=== PATIENT | male | born 1990 | race Caucasian/White ===

== ENCOUNTER 2020-04-21 13:39 | Emergency (ER) | payer SELFPAY ==
--- NOTE | 2020-04-21 13:56 | EDM.PDOC ---
ED HPI GENERAL MEDICAL PROBLEM - General Chief Complaint: Lower Extremity Injury/Pain Stated Complaint: KNEE INJURY Time Seen by Provider: 04/21/20 13:56 Source of Information: Reports: Patient History Limitations: Reports: No Limitations - History of Present Illness INITIAL COMMENTS - FREE TEXT/NARRATIVE: HISTORY AND PHYSICAL: History of present illness: Patient is a 30-year-old male who presents to the emergency room with complaints of left knee pain. States a little over a week ago a door had fallen onto his knee and he now has pain to the patella and with weightbearing. He is fully ambulatory although it continues to be bothersome. He denies any other extremity involvement. Patient denies any fever, chills, headache, change in vision, syncope or near syncope. Denies any chest pain, back pain, shortness of breath or cough. Denies any abdominal pain, nausea, vomiting, diarrhea, constipation or dysuria. Has not noted any blood in urine or stool. Patient has been eating and drinking appropriately. Review of systems: As per history of present illness and below otherwise all systems reviewed and negative. Past medical history: As per history of present illness and as reviewed below otherwise noncontributory. Surgical history: As per history of present illness and as reviewed below otherwise noncontributory. Social history: See social history for further information Family history: As per history of present illness and as reviewed below otherwise noncontributory. Physical exam: General: Well-developed and well-nourished 30-year-old male. Alert and oriented. Nontoxic-appearing and in no acute distress. HEENT: Atraumatic, normocephalic, pupils equal and reactive bilaterally, negative for conjunctival pallor or scleral icterus, mucous membranes moist, trachea midline. No drooling or trismus noted. No meningeal signs. No hot potato voice noted. Lungs: Clear to auscultation, breath sounds equal bilaterally. Heart: S1S2, regular rate and rhythm without overt murmur Abdomen: Soft, nondistended, nontender. Skin: Intact, warm, dry. No lesions or rashes noted. Extremities: Knees are symmetrical, no soft tissue swelling moves all extremi ties per self without difficulty or deficits, flexion and extension of the knee, drawer test, no knee instability noted, negative for cords or calf pain. Strong pedal pulses. +CMS. Neurovascular unremarkable. Neuro: Awake, alert, oriented. Cranial nerves II through XII unremarkable. Cerebellum unremarkable. Motor and sensory unremarkable throughout. Exam nonfocal. Notes: X-ray shows no acute findings. Patient was placed in patellar cut out and crutches, for comfort. Patient to wear these over the next 1 to 3 days or until follow-up with orthopedic provider. We discussed the limitations of x-ray and that he may need an MRI if pain continues. Medication, follow-up and supportive care measures were reviewed and discussed. Voices understanding and is agreeable to plan of care. Denies any further questions or concerns at this time. Diagnostics: X-ray Therapeutics: Patellar cut out, crutches Prescription: Diclofenac Impression: Left knee injury Plan: 1. Rest, ice, elevate the affected extremity. Please wear the splint as directed. 2. Tylenol and/or Ibuprofen as needed for pain management. 3. Follow up with the Orthopedic provider as we discussed. Return to the ED as needed and as discussed. Definitive disposition and diagnosis as appropriate pending reevaluation and review of above. L knee Pain Score (Numeric/FACES): 10 - Related Data Allergies Allergy/AdvReac Type Severity Reaction Status Date / Time No Known Allergies Allergy Verified 04/21/20 14:20 Home Meds: Home Meds Diclofenac Sodium [Voltaren] 75 mg PO BIDMEALS PRN #30 tab.cr 04/21/20 [Rx] Review of Systems - Review of Systems Review Of Systems: Comprehensive ROS is negative, except as noted in HPI. ED EXAM, GENERAL - Physical Exam Exam: See Below (See dictation) Course - Vital Signs Last Recorded V/S: Last Vital Signs Temp 97.5 F 04/21/20 14:17 Pulse 80 04/21/20 14:17 Resp 17 04/21/20 14:17 BP 118/82 04/21/20 14:17 Pulse Ox 97 04/21/20 14:17 - Orders/Labs/Meds Orders: Active Orders 24 hr Category Date Time Status DME for Discharge [COMM] Stat Oth 04/21/20 15:35 Ordered Departure - Departure Time of Disposition: 14:29 Disposition: Home, Self-Care 01 Clinical Impression: Knee injury Qualifiers: Encounter type: initial encounter Laterality: left Qualified Code(s): S89.92XA - Unspecified injury of left lower leg, initial encounter - Discharge Information Prescriptions: Diclofenac Sodium [Voltaren] 75 mg PO BIDMEALS PRN #30 tab.cr PRN Reason: Pain Instructions: Knee Sprain, Adult, [id number] Referrals: PCP,None [Primary Care Provider] - Forms: ED Department Discharge Additional Instructions: The following information is given to patients seen in the emergency department who are being discharged to home. This information is to outline your options for follow-up care. We provide all patients seen in our emergency department with a follow-up referral. The need for follow-up, as well as the timing and circumstances, are variable depending upon the specifics of your emergency department visit. If you don't have a primary care physician on staff, we will provide you with a referral. We always advise you to contact your personal physician following an emergency department visit to inform them of the circumstance of the visit and for follow-up with them and/or the need for any referrals to a consulting specialist. The emergency department will also refer you to a specialist when appropriate. This referral assures that you have the opportunity for follow-up care with a specialist. All of these measure are taken in an effort to provide you with optimal care, which includes your follow-up. Under all circumstances we always encourage you to contact your private physician who remains a resource for coordinating your care. When calling for follow-up care, please make the office aware that this follow-up is from your recent emergency room visit. If for any reason you are refused follow-up, please contact the [facility] Emergency Department at and asked to speak to the emergency department charge nurse. [facility] [address] [place] [address] [id number] [address] Thank you for choosing the [facility] emergency department in [place] for your medical needs today. It was a pleasure caring for you. You were seen in the emergency department for knee pain/injury. 1. Rest, ice, elevate the affected extremity. Please wear the splint as directed. 2. Tylenol and/or Ibuprofen as needed for pain management. 3. Follow up with the Orthopedic provider as we discussed. If you continue to have pain you may require an MRI at some point. 4. Return to the ED as needed and as discussed. Sepsis Event Note (ED) - Focused Exam Vital Signs: Vital Signs Temp Pulse Resp BP Pulse Ox 04/21/20 14:17 97.5 F 80 17 118/82 97 - My Orders Last 24 Hours: My Active Orders 04/21/20 15:35 DME for Discharge [COMM] Stat - Assessment/Plan Last 24 Hours: My Active Orders 04/21/20 15:35 DME for Discharge [COMM] Stat
--- NOTE | 2020-04-21 15:34 | CR ---
Left knee: AP, lateral and sunrise patellar views of the left knee were obtained. Comparison: No previous knee exam. Medial and lateral joint compartments are maintained in height. No discrete joint effusion is seen. Patellofemoral joint appears within normal limits. Impression: 1. No abnormality is identified on 3 view left knee exam. Diagnostic code #1 This report was dictated in MDT
== END 2020-04-21 15:45 | disposition home or self-care (01) ==
LOC: MW.ED 13:39
DX: S89.92XA Unspecified injury of left lower leg, initial encounter (principal); X58.XXXA Exposure to other specified factors, initial encounter
CPT/HCPCS: 73562-26-LT; 73562-LT; 99283; 99283-25

== ENCOUNTER 2020-10-02 22:07 | Emergency (ER) | payer SELFPAY ==
[2020-10-02] MEDS ORDERED: Ibuprofen 600 MG Tab PO ONE (22:20)
[2020-10-02] MEDS ORDERED: traMADol 50 MG Tab PO ONE (22:20)
--- NOTE | 2020-10-02 22:21 | EDM.PDOC ---
ED HPI GENERAL MEDICAL PROBLEM - General Chief Complaint: Lower Extremity Injury/Pain Stated Complaint: LT TOE/FOOT INJURY Time Seen by Provider: 10/02/20 22:08 - History of Present Illness INITIAL COMMENTS - FREE TEXT/NARRATIVE: HISTORY AND PHYSICAL: History of present illness: This is a 30-year-old gentleman who presents ER today secondary to pain to his left big toe that he incurred when he stubbed it up against a table at home. Patient reports he was barefoot at the time. Patient reports has been having difficulty with weightbearing since yesterday when it occurred. Patient reports it occurred greater than 24 hours ago. Patient has not taken any ibuprofen or acetaminophen or anything for pain since the injury. Patient denies any other symptomatology. Patient has any recent fevers, shakes, chills, nausea, vom iting, diarrhea, dysuria, frequency, urgency. Review of systems: As per history of present illness and below otherwise all systems reviewed and negative. Past medical history: As per history of present illness and as reviewed below otherwise noncontributory. Surgical history: As per history of present illness and as reviewed below otherwise noncontributory. Social history: No reported history of drug or alcohol abuse. Family history: As per history of present illness and as reviewed below otherwise noncontributory. Physical exam: Constitutional: Patient is oriented to person, place, and time. Appears well- developed and well-nourished. No distress. HEENT: Moist mucous membranes Head: Normocephalic and atraumatic Eyes: Right eye exhibits no discharge. Left eye exhibits no discharge. No scleral icterus Neck: Normal range of motion. No tracheal deviation present. Cardiovascular: Normal rate and regular rhythm. Pulmonary: Effort normal, no respiratory distress. Abdominal: No distention Musculoskeletal: Normal range of motion Neurologic: Alert and oriented to person, place and time. Skin: [place], warm and dry. Psychiatric: Normal mood and affect. Behavior is normal. Judgment and thought content normal. Nursing note and vital signs have been reviewed Patient's ER physical exam is significant for soft tissue swelling, tenderness, ecchymosis to his left big toe. This patient was seen and evaluated during the 2019 SARS-CoV-2 novel coronavirus pandemic period. Community viral transmission is ongoing at time of this encounter and the emergency department is operating under pandemic response procedures. Diagnostics: X-rays of left toe negative fracture as interpreted by radiology and myself. Therapeutics: Ultram and ibuprofen Assessment and plan: Is a 30-year-old gentleman who presents ER today secondary to pain to his left toe x1 day since stubbing it up against a table at home. Patient had an x-ray of his toe, ibuprofen and Ultram for pain and will be reevaluated once x-rays obtained. Patient be discharged home with a prescription for ibuprofen Ultram to assist with the pain. Reassessment at the time of disposition demonstrates that the patient is in no acute distress. The patient has remained stable throughout the entire ED visit and is without objective evidence for acute process requiring urgent intervention or hospitalization. The patient is stable for discharge, counseling is provided as documented above, discussed symptomatic treatment and specific conditions for return. I have spoken with the patient/caregiver and discussed todays findings, in addition to providing specific details for the plan of care. Questions are answered and there is agreement with the plan. Definitive disposition and diagnosis as appropriate pending reevaluation and review of above. Left Toe-[place] Pain Score (Numeric/FACES): 7 - Related Data Allergies Allergy/AdvReac Type Severity Reaction Status Date / Time No Known Allergies Allergy Verified 10/02/20 22:16 Home Meds: Home Meds Ibuprofen 600 mg PO Q6HR PRN #30 tablet 10/02/20 [Rx] traMADol [Ultram] 50 mg PO Q6H PRN #12 tab 10/02/20 [Rx] Past Medical History - Past Health History Medical/Surgical History: Denies Medical/Surgical History Social & Family History - Family History Family Medical History: No Pertinent Family History - Caffeine Use Caffeine Use: Reports: Coffee Review of Systems - Review of Systems Review Of Systems: See Below ED EXAM, GENERAL - Physical Exam Exam: See Below Course - Vital Signs Last Recorded V/S: Last Vital Signs Temp 97.8 F 10/02/20 22:17 Pulse 77 10/02/20 22:17 Resp 18 10/02/20 22:17 BP 118/73 10/02/20 22:17 Pulse Ox 98 10/02/20 22:17 - Orders/Labs/Meds Meds: Medications Discontinued Medications Generic Name Dose Route Start Last Admin Trade Name Freq PRN Reason Stop Dose Admin Ibuprofen 600 mg 10/02/20 22:20 10/02/20 22:23 Motrin PO 10/02/20 22:21 600 mg ONETIME ONE Administration Tramadol HCl 50 mg 10/02/20 22:20 10/02/20 22:23 Ultram PO 10/02/20 22:21 50 mg ONETIME ONE Administration Departure - Departure Time of Disposition: 23:24 Disposition: Home, Self-Care 01 Condition: Good Clinical Impression: Sprain of toe, great, left Qualifiers: Encounter type: initial encounter Qualified Code(s): S93.502A - Unspecified sprain of left great toe, initial encounter - Discharge Information Instructions: How to [place], Musculoskeletal Pain Referrals: PCP,None [Primary Care Provider] - Forms: ED Department Discharge Additional Instructions: Your seen and evaluated in the ER today secondary to injury to your left great toe. Your x-rays do not reveal any fracture. You likely have a sprain and contusion to your toe. This might take 1 to 2 weeks to heal. He will be given a prescription for ibuprofen and Ultram to assist you with your pain. Please make an appointment to see your family doctor this week for reevaluation of the pain persists or if it worsens. The following information is given to patients seen in the emergency department who are being discharged to home. This information is to outline your options for follow-up care. We provide all patients seen in our emergency department with a follow-up referral. The need for follow-up, as well as the timing and circumstances, are variable depending upon the specifics of your emergency department visit. If you don't have a primary care physician on staff, we will provide you with a referral. We always advise you to contact your personal physician following an emergency department visit to inform them of the circumstance of the visit and for follow-up with them and/or the need for any referrals to a consulting specialist. The emergency department will also refer you to a specialist when appropriate. This referral assures that you have the opportunity for follow-up care with a specialist. All of these measure are taken in an effort to provide you with optimal care, which includes your follow-up. Under all circumstances we always encourage you to contact your private physician who remains a resource for coordinating your care. When calling for follow-up care, please make the office aware that this follow-up is from your recent emergency room visit. If for any reason you are refused follow-up, please contact the [facility] Emergency Department at and asked to speak to the emergency department charge nurse. [facility] - Primary [facility] [address] [place] [id number] [facility] [address] [place] [id number] Sepsis Event Note (ED) - Evaluation Sepsis Screening Result: No Definite Risk - Focused Exam Vital Signs: Vital Signs Temp Pulse Resp BP Pulse Ox 10/02/20 22:17 97.8 F 77 18 118/73 98
--- NOTE | 2020-10-02 23:07 | CR ---
HISTORY: Pain after stubbing the toe COMPARISON: None available. FINDINGS: The left great toe is examined with AP, lateral, and oblique views. There is no sign of fracture or dislocation. The soft tissues are normal in appearance without sign of radio-opaque foreign body. No degenerative disease is seen. IMPRESSION: Normal left great toe. Dictated by Vlad Denise MD @ Oct 02 2020 10:55PM Signed by Dr. Vlad Denise @ Oct 02 2020 11:06PM
== END 2020-10-02 23:36 | disposition home or self-care (01) ==
LOC: MW.ED 22:07
DX: S93.502A Unspecified sprain of left great toe, initial encounter (principal); W22.8XXA Striking against or struck by other objects, initial encounter; Y92.009 Unspecified place in unspecified non-institutional (private) residence as the place of occurrence of the external cause
CPT/HCPCS: 73660; 99283; A9270

== ENCOUNTER 2020-11-16 17:21 | Emergency (ER) | payer MEDICAID, BC ==
[2020-11-16] MEDS ORDERED: Diphtheria,Pertussis(Acell),Tetanus Vaccine 0.5 ML Syringe IM ONE (17:41)
[2020-11-16] MEDS ORDERED: Lidocaine 1% with EPINEPHrine 1:100,000 10 ML MDV INJECT ONE (17:41)
--- NOTE | 2020-11-16 17:41 | EDM.PDOC ---
ED HPI GENERAL MEDICAL PROBLEM - General Chief Complaint: Skin Complaint Stated Complaint: POSSIBLE CYST ON INNER THIGH Time Seen by Provider: 11/16/20 17:22 Source of Information: Reports: Patient History Limitations: Reports: No Limitations - History of Present Illness INITIAL COMMENTS - FREE TEXT/NARRATIVE: HISTORY AND PHYSICAL: History of present illness: Patient is a 30-year-old male who presents to the emergency room with complaints of a "cyst" to the right inner medial thigh. He states he noticed some irritation over the past 3 days which is progressively gotten worse. He attempted to extract the cyst himself but was unable to "go through with it". He has not had any drainage. Patient denies any fever, chills, headache, change in vision, syncope or near syncope. Denies any chest pain, back pain, shortness of breath or cough. Denies any GI or symptoms. Denies any testicular redness, swelling or tenderness. Patient has been eating and drinking appropria tely. Review of systems: As per history of present illness and below otherwise all systems reviewed and negative. Past medical history: As per history of present illness and as reviewed below otherwise noncontributory. Surgical history: As per history of present illness and as reviewed below otherwise noncontributory. Social history: See social history for further information Family history: As per history of present illness and as reviewed below otherwise noncontributory. Physical exam: General: Well developed and well nourished 30-year-old male. Alert and orientated x 3. Nontoxic in appearance and in no acute distress. Vital signs are stable and have been reviewed by me. Nursing notes were reviewed. HEENT: Atraumatic, normocephalic, pupils equal and reactive bilaterally, nega tive for conjunctival pallor or scleral icterus, mucous membranes moist, TMs normal bilaterally, throat clear, neck supple, nontender, trachea midline. No drooling or trismus noted. No meningeal signs. No hot potato voice noted. Lungs: Clear to auscultation bilaterally. No wheezes, rales, or rhonchi. Chest nontender. Normal work of breathing, no accessory muscles used. Heart: S1S2, regular rate and rhythm without overt murmur, gallops, or rubs. No JVD. No peripheral edema Abdomen: Soft, nondistended, nontender. Normoactive bowel sounds. Negative for masses or costovertebral tenderness. Pelvis: Stable nontender. Genitourinary/Rectal: Deferred. Skin: Abscess noted to right medial proximal thigh with fluctuance. Patient is tender to palpation. No surrounding cellulitis. Remaining skin is intact, warm, dry. No lesions or rashes noted. Hematologic: No petechiae or purpra. Mucosa appropriate color and normal nail bed color and refill. Extremities: Atraumatic, moves all extremities per self without difficulty or deficits, negative for cords or calf pain. Neurovascular unremarkable. Neuro: Awake, alert, oriented. Cranial nerves II through XII unremarkable. Cerebellum unremarkable. Motor and sensory unremarkable throughout. Exam nonfocal. Psychiatric: Mood and affect are appropriate. Normal thought process. Answering questions appropriately. Notes: *This patient was seen and evaluated during the 2019 SARS-CoV-2 novel coronavirus pandemic period. Community viral transmission is ongoing at time of this encounter and the emergency department is operating under pandemic response procedures. Lidocaine was used to anesthetize the area. Usual and customary procedures were followed for abscess drainage. Moderate amount of purulent drainage was expressed from the site. Patient tolerated well. Was packed with half-inch iodoform. I have talked with the patient about today's findings, in addition to providing specific details for plan of care. Reassessment at the time of disposition demonstrates that the patient is in no acute distress. The patient is stable for discharge, counseling was provided and we discussed in great detail signs and symptoms that would prompt them to return to the Emergency Department. Medication, follow up and supportive care measures were reviewed and discussed. Voices understanding and is agreeable to plan of care. Denies any further questions or concerns at this time. Diagnostics: None Therapeutics: Lidocaine Prescription: Bactrim Ds/Keflex Impression: Abscess Plan: 1. Keep the wound clean and dry. Wash gently with mild soap and water. Return in 48 hours to have the packing removed and re-packed. 2. You can alternate Tylenol and ibuprofen as needed for pain and fever management. 3. We encourage you to follow up with your primary care provider and/or recommended specialist in the next few days for re-evaluation and further care/management. 4. If your symptoms should worsen, new symptoms develop or any of the signs and symptoms we discussed should arise please return to the emergency room or call 911 (if needed). Definitive disposition and diagnosis as appropriate pending reevaluation and review of above. Duration: Day(s): Right thigh Pain Score (Numeric/FACES): 7 - Related Data Allergies Allergy/AdvReac Type Severity Reaction Status Date / Time No Known Allergies Allergy Verified 11/16/20 17:52 Home Meds: Home Meds Sulfamethoxazole/Trimethoprim [Bactrim Ds Tablet] 1 each PO BID 7 Days #14 tablet 11/16/20 [Rx] cephALEXin [Keflex] 500 mg PO BID 5 Days #10 cap 11/16/20 [Rx] Past Medical History - Past Health History Medical/Surgical History: Denies Medical/Surgical History - Infectious Disease History Infectious Disease History: Reports: None Social & Family History - Family History Family Medical History: No Pertinent Family History - Caffeine Use Caffeine Use: Reports: Coffee, Energy Drinks, Soda, Tea ED ROS GENERAL - Review of Systems Review Of Systems: Comprehensive ROS is negative, except as noted in HPI. ED EXAM, SKIN/RASH Exam: See Below (See dictation) ED SKIN PROCEDURES - I&D Site: Right proximal medial thigh Skin Prep: Chlorhexidine (Hibiciens), Providone-Iodine (Betadine), Sterile Drape Local Anesthesia: Lidocaine: 1% with EPI Local Anesthetic Volume: 2cc Area Incised With: 11 Blade Drainage: Purulent, Moderate Amount Probed to Break Up Loculations: Yes Packed With: 1/2 in. Iodoform Sterile Dressing: Adhesive Dressing Complications: No Course - Vital Signs Last Recorded V/S: Last Vital Signs Temp 98.3 F 11/16/20 17:52 Pulse 81 11/16/20 17:52 Resp 18 11/16/20 17:52 BP 124/68 11/16/20 17:52 Pulse Ox 98 11/16/20 17:52 - Orders/Labs/Meds Orders: Active Orders 24 hr Category Date Time Status Vaccines to be Administered [RC] PER UNIT ROUTINE Care 11/16/20 17:41 Ordered Meds: Medications Discontinued Medications Generic Name Dose Route Start Last Admin Trade Name Freq PRN Reason Stop Dose Admin Diphtheria/Tetanus/Acell Pertussis 0.5 ml 11/16/20 17:41 11/16/20 17:48 Boostrix IM 11/16/20 17:42 0.5 ml .ONCE ONE Administration Lidocaine HCl Confirm 11/16/20 18:06 Xylocaine-Mpf 1% Administered 11/16/20 18:07 Dose 2 mls @ as directed .ROUTE .STK-MED ONE Lidocaine/Epinephrine 10 ml 11/16/20 17:41 11/16/20 17:49 Xylocaine 1% With Epinephrine 1:100,000 INJECT 11/16/20 17:42 Not Given ONETIME ONE Lidocaine/Epinephrine Confirm 11/16/20 17:44 11/16/20 17:49 Xylocaine 1% With Epinephrine 1:100,000 Administered 11/16/20 17:45 Not Given Dose 20 ml .ROUTE .STK-MED ONE Lidocaine/Epinephrine 20 ml 11/16/20 17:47 11/16/20 17:49 Xylocaine 1% With Epinephrine 1:100,000 INJECT 11/16/20 17:48 20 ml ONETIME ONE Administration Departure - Departure Time of Disposition: 18:09 Disposition: Home, Self-Care 01 Clinical Impression: Abscess - Discharge Information Prescriptions: Sulfamethoxazole/Trimethoprim [Bactrim Ds Tablet] 1 each PO BID 7 Days #14 tablet cephALEXin [Keflex] 500 mg PO BID 5 Days #10 cap Instructions: Skin Abscess, [id number] Referrals: PCP,None [Primary Care Provider] - Forms: ED Department Discharge Additional Instructions: The following information is given to patients seen in the emergency department who are being discharged to home. This information is to outline your options for follow-up care. We provide all patients seen in our emergency department with a follow-up referral. The need for follow-up, as well as the timing and circumstances, are variable depending upon the specifics of your emergency department visit. If you don't have a primary care physician on staff, we will provide you with a referral. We always advise you to contact your personal physician following an emergency department visit to inform them of the circumstance of the visit and for follow-up with them and/or the need for any referrals to a consulting specialist. The emergency department will also refer you to a specialist when appropriate. This referral assures that you have the opportunity for follow-up care with a specialist. All of these measure are taken in an effort to provide you with optimal care, which includes your follow-up. Under all circumstances we always encourage you to contact your private physician who remains a resource for coordinating your care. When calling for follow-up care, please make the office aware that this follow-up is from your recent emergency room visit. If for any reason you are refused follow-up, please contact the [facility] Emergency Department at and asked to speak to the emergency department charge nurse. [facility] [address] [place] [address] [facility] [address] [place] [phone] Thank you for choosing the [facility] emergency department in [place] for your medical needs today. It was a pleasure caring for you. Today you were seen in the emergency department for an abscess 1. Keep the wound clean and dry. Wash gently with mild soap and water. Return in 48 hours to have the packing removed and re-packed. 2. You can alternate Tylenol and ibuprofen as needed for pain and fever management. 3. We encourage you to follow up with your primary care provider and/or recommended specialist in the next few days for re-evaluation and further care/management. 4. If your symptoms should worsen, new symptoms develop or any of the signs and symptoms we discussed should arise please return to the emergency room or call 911 (if needed). Sepsis Event Note (ED) - Focused Exam Vital Signs: Vital Signs Temp Pulse Resp BP Pulse Ox 11/16/20 17:52 98.3 F 81 18 124/68 98 - My Orders Last 24 Hours: My Active Orders 11/16/20 17:41 Vaccines to be Administered [RC] PER UNIT ROUTINE - Assessment/Plan Last 24 Hours: My Active Orders 11/16/20 17:41 Vaccines to be Administered [RC] PER UNIT ROUTINE
[2020-11-16] MEDS ORDERED: Lidocaine 1% with EPINEPHrine 1:100,000 20 ML MDV ONE (17:44)
[2020-11-16] MEDS ORDERED: Lidocaine 1% with EPINEPHrine 1:100,000 20 ML MDV INJECT ONE (17:47)
[2020-11-16] MEDS ORDERED: Lidocaine 1% 2 ML ONE (18:06)
== END 2020-11-16 18:17 | disposition home or self-care (01) ==
LOC: MW.ED 17:21
DX: L02.415 Cutaneous abscess of right lower limb (principal); Z23 Encounter for immunization
CPT/HCPCS: 10060; 90471; 90715; 99282; 99282-25

== ENCOUNTER 2021-08-21 12:10 | Emergency (ER) | payer BC, MEDICAID ==
[2021-08-21] MEDS ORDERED: Bupivacaine 0.5% 10 ML SDV INJECT ONE (15:37)
[2021-08-21] MEDS ORDERED: Ketorolac 60 MG/2 ML SDV IM ONE (15:37)
--- NOTE | 2021-08-21 15:38 | EDM.PDOC ---
ED HPI GENERAL MEDICAL PROBLEM - General Chief Complaint: General Stated Complaint: RIGHT SIDE INNER THIGH PAIN Time Seen by Provider: 08/21/21 15:26 Source of Information: Reports: Patient History Limitations: Reports: No Limitations - History of Present Illness INITIAL COMMENTS - FREE TEXT/NARRATIVE: HISTORY AND PHYSICAL: History of present illness: The patient is a 31 year old male who presents to the ED for complaints of an right inner thigh abscess that started two days ago. The patient had a similar episode last year that is required to be lanced and oral antibiotics. Patient denies any fever, chills, headache, change in vision, syncope or near syncope. Denies any chest pain, back pain, shortness of breath or cough. Denies any abdominal pain, nausea, vomiting, diarrhea, constipation or dysuria. Has not noted any blood in urine or stool. Patient has been eating and drinking appropriately. Review of systems: As per history of present illness and below otherwise all systems reviewed and negative. Past medical history: As per history of present illness and as reviewed below otherwise noncontributory. Surgical history: As per history of present illness and as reviewed below otherwise noncontributory. Social history: See social history for further information Family history: As per history of present illness and as reviewed below otherwise noncont ributory. Physical exam: General: Well developed and well nourished. Alert and orientated x 3. Nontoxic in appearance and in no acute distress. Vital signs are stable and have been reviewed by me. Nursing notes were reviewed. HEENT: Atraumatic, normocephalic, pupils equal and reactive bilaterally, negative for conjunctival pallor or scleral icterus, mucous membranes moist, TMs normal bilaterally, throat clear, neck supple, nontender, trachea midline. No drooling or trismus noted. No meningeal signs. No hot potato voice noted. Lungs: Clear to auscultation bilaterally. No wheezes, rales, or rhonchi. Chest nontender. Normal work of breathing, no accessory muscles used. Heart: S1S2, regular rate and rhythm without overt murmur, gallops, or rubs. No JVD. No peripheral edema Abdomen: Soft, nondistended, nontender. Normoactive bowel sounds. Negative for masses or costovertebral tenderness. Skin: Intact, warm, dry. Circular 2x3 cm red raised area with fluctuance. Hematologic: No petechiae or purpra. Mucosa appropriate color and normal nail bed color and refill. Extremities: Atraumatic, moves all extremities per self without difficulty or deficits, negative for cords or calf pain. Neurovascular unremarkable. Neuro: Awake, alert, oriented. Cranial nerves II through XII unremarkable. Cerebellum unremarkable. Motor and sensory unremarkable throughout. Exam nonfocal. Psychiatric: Mood and affect are appropriate. Normal thought process. Answering questions appropriately. Notes: *This patient was seen and evaluated during the 2019 SARS-CoV-2 novel coronavirus pandemic period. Community viral transmission is ongoing at time of this encounter and the emergency department is operating under pandemic response procedures. As stated above the patient is a 31 year old male with complaints of 2x3 cm red raised area with fluctuance. The patient has not had any fever and other than the abscess had been healthy. I will treat the patient's discomfort with Toradol. See the procedure note. The patient tolerated well. I instructed the patient to allow the drainage to tonight and then he can shower tomorrow. I prescribed Bactrim DS 1 p.o. twice daily and Keflex 500 p.o. 3 times daily for 7 days. I instructed the patient on when he needed to return to the emergency department. Patient is agreeable with this discharge plan. I have talked with the patient about today's findings, in addition to providing specific details for plan of care. Reassessment at the time of disposition demonstrates that the patient is in no acute distress. The patient is stable for discharge, counseling was provided and we discussed in great detail signs and symptoms that would prompt them to return to the Emergency Department. Medication, follow up and supportive care measures were reviewed and discussed. Voices understanding and is agreeable to plan of care. Denies any further questions or concerns at this time. Therapeutics: Toradol Prescription: Bactrim DS one by mouth twice daily and Keflex 500mg by mouth three times per day for 7 days Impression: Abscess Plan: 1. You were evaluated today on an emergent basis. Your abscess on your right inner thigh was drained. Allow the area to drain. You can take the material out in two days. I have prescribed Bactrim DS one by mouth twice daily and Keflex 500mg by mouth three times per day for 7 days, which was sent to [place] pharmacy. If the area does not heal or you develop a fever please return to the ED. 2. You can alternate Tylenol and ibuprofen as needed for pain and fever management. 3. We encourage you to follow up with your primary care provider and/or recommended specialist in the next few days for re-evaluation and further care/management. 4. If your symptoms should worsen, new symptoms develop or any of the signs and symptoms we discussed should arise please return to the emergency room or call 911 (if needed). Definitive disposition and diagnosis as appropriate pending reevaluation and review of above. Right Thigh Pain Score (Numeric/FACES): 5 - Related Data Allergies Allergy/AdvReac Type Severity Reaction Status Date / Time No Known Allergies Allergy Verified 08/21/21 14:20 Home Meds: Home Meds Sulfamethoxazole/Trimethoprim [Bactrim Ds Tablet] 1 each PO BID 7 Days #21 tablet 08/21/21 [Rx] cephALEXin [Keflex] 500 mg PO TID 7 Days #21 cap 08/21/21 [Rx] Past Medical History - Past Health History Medical/Surgical History: Denies Medical/Surgical History - Infectious Disease History Infectious Disease History: Reports: None Social & Family History - Family History Family Medical History: No Pertinent Family History - Tobacco Use Second Hand Smoke Exposure: No - Caffeine Use Caffeine Use: Reports: None - Recreational Drug Use Recreational Drug Use: No ED ROS GENERAL - Review of Systems Review Of Systems: Comprehensive ROS is negative, except as noted in HPI. ED EXAM, GENERAL - Physical Exam Exam: See Below (See dictation) ED I&D PROCEDURES - I&D Site: right inner thigh Skin prep: Chlorhexidine (Hibiciens) Local anesthesia - Lidocaine (Xylocaine): 1% Plain Local Anesthesia - Bupivicaine (Marcaine): 0.5% Plain Local Anesthetic Volume: 5cc Area Incised With: 11 Blade Drainage: Purulent, Bloody, Moderate Amount Probed to Break Up Loculations: Yes Packed With: 1/4 in. Iodoform Sterile Dressinx4(s) Complications: No Course - Vital Signs Last Recorded V/S: Last Vital Signs Temp 97 F 08/21/21 14:17 Pulse 77 08/21/21 14:17 Resp 20 08/21/21 14:17 BP 120/72 08/21/21 14:17 Pulse Ox 98 08/21/21 14:17 - Orders/Labs/Meds Meds: Medications Discontinued Medications Generic Name Dose Route Start Last Admin Trade Name Suma PRN Reason Stop Dose Admin Bupivacaine HCl 10 ml 08/21/21 15:37 08/21/21 16:47 Bupivacaine 0.5% 10 Ml Sdv INJECT 08/21/21 15:38 10 ml ONETIME ONE Administration Ketorolac Tromethamine 60 mg 08/21/21 15:37 08/21/21 15:49 Ketorolac 60 Mg/2 Ml Sdv IM 08/21/21 15:38 60 mg ONETIME ONE Administration Lidocaine HCl 5 ml 08/21/21 15:37 08/21/21 16:47 Lidocaine 1% 5 Ml Sdv INJECT 08/21/21 15:38 5 ml ONETIME ONE Administration Departure - Departure Time of Disposition: 16:29 Disposition: Home, Self-Care 01 Condition: Good Clinical Impression: Skin abscess Qualifiers: Site of cutaneous abscess: other site Qualified Code(s): L02.818 - Cutaneous abscess of other sites - Discharge Information *PRESCRIPTION DRUG MONITORING PROGRAM REVIEWED*: Not Applicable *COPY OF PRESCRIPTION DRUG MONITORING REPORT IN PATIENT YOLANDE: Not Applicable Prescriptions: Sulfamethoxazole/Trimethoprim [Bactrim Ds Tablet] 1 each PO BID 7 Days #21 tablet cephALEXin [Keflex] 500 mg PO TID 7 Days #21 cap Referrals: PCP,None [Primary Care Provider] - Forms: ED Department Discharge Additional Instructions: The following information is given to patients seen in the emergency department who are being discharged to home. This information is to outline your options for follow-up care. We provide all patients seen in our emergency department with a follow-up referral. The need for follow-up, as well as the timing and circumstances, are variable depending upon the specifics of your emergency department visit. If you don't have a primary care physician on staff, we will provide you with a referral. We always advise you to contact your personal physician following an emergency department visit to inform them of the circumstance of the visit and for follow-up with them and/or the need for any referrals to a consulting specialist. The emergency department will also refer you to a specialist when appropriate. This referral assures that you have the opportunity for follow-up care with a specialist. All of these measure are taken in an effort to provide you with optimal care, which includes your follow-up. Under all circumstances we always encourage you to contact your private physician who remains a resource for coordinating your care. When calling for follow-up care, please make the office aware that this follow-up is from your recent emergency room visit. If for any reason you are refused follow-up, please contact the [facility] Emergency Department at and asked to speak to the emergency department charge nurse. [facility] [address] [place] [address] [facility] [address] [place] [id number] Plan: 1. You were evaluated today on an emergent basis. Your abscess on your right inner thigh was drained. Allow the area to drain. You can take the material out in two days. I have prescribed Bactrim DS one by mouth twice daily and Keflex 500mg by mouth three times per day for 7 days, which was sent to [place] pharmacy. If the area does not heal or you develop a fever please return to the ED. 2. You can alternate Tylenol and ibuprofen as needed for pain and fever management. 3. We encourage you to follow up with your primary care provider and/or recommended specialist in the next few days for re-evaluation and further care/management. 4. If your symptoms should worsen, new symptoms develop or any of the signs and symptoms we discussed should arise please return to the emergency room or call 911 (if needed). Sepsis Event Note (ED) - Evaluation Sepsis Screening Result: No Definite Risk - Focused Exam Vital Signs: Vital Signs Temp Pulse Resp BP Pulse Ox 08/21/21 14:17 97 F 77 20 120/72 98
== END 2021-08-21 17:00 | disposition home or self-care (01) ==
LOC: MW.ED 12:10
DX: L02.415 Cutaneous abscess of right lower limb (principal)
CPT/HCPCS: 10060; 96372; 99282; J1885; J3490

== ENCOUNTER 2021-11-01 08:36 | Emergency (ER) | payer BC ==
[2021-11-01] MEDS ORDERED: Dexamethasone 10 MG/ML SDV IM STA (08:57)
[2021-11-01] MEDS ORDERED: cefTRIAXone 500 MG in Lidocaine 1% 1 ML IM ONE (08:57)
== END 2021-11-01 09:31 | disposition home or self-care (01) ==
LOC: MW.ED 08:36
DX: J02.8 Acute pharyngitis due to other specified organisms (principal); B96.89 Other specified bacterial agents as the cause of diseases classified elsewhere
CPT/HCPCS: 87651; 96372; 99283; J0696; J1100

== ENCOUNTER 2022-03-28 14:01 | Emergency (ER) | payer BC | END 2022-03-28 16:10 | disposition home or self-care (01) | LOC: MW.ED 14:01 | DX: S80.11XA Contusion of right lower leg, initial encounter (principal); W10.8XXA Fall (on) (from) other stairs and steps, initial encounter | CPT/HCPCS: 73552-26-LT; 73552-RT; 99283 ==

== ENCOUNTER 2023-03-17 14:13 | Emergency (ER) | payer SELFPAY ==
[2023-03-17] MEDS ORDERED: Sodium Chloride 0.9% 1,000 ML IV ONE (14:45)
[2023-03-17] MEDS ORDERED: Metoclopramide 10 MG/2 ML SDV IVPUSH ONE (14:46)
== END 2023-03-17 16:37 | disposition home or self-care (01) ==
LOC: MW.ED 14:13
DX: R51.9 Headache, unspecified (principal); F17.210 Nicotine dependence, cigarettes, uncomplicated
CPT/HCPCS: 70450; 96361; 96374; 99284; J2765; J7030; 99283

== ENCOUNTER 2023-05-07 16:06 | Emergency (ER) | payer MEDICAID ==
[2023-05-07] MEDS ORDERED: Ibuprofen 400 MG Tab PO ONE (16:24)
[2023-05-07] MEDS ORDERED: Acetaminophen 325 MG Tab PO ONE (16:24)
== END 2023-05-07 18:31 | disposition home or self-care (01) ==
LOC: MW.ED 16:06
DX: S00.91XA Abrasion of unspecified part of head, initial encounter (principal); W19.XXXA Unspecified fall, initial encounter
CPT/HCPCS: 70450; 99283; A9270

== ENCOUNTER 2023-12-27 03:35 | Emergency (ER) | payer MEDICAID ==
[2023-12-27] MEDS: Acetaminophen 500 MG Tab PO ONE (03:50)
== END 2023-12-27 04:51 | disposition home or self-care (01) ==
LOC: MW.ED 03:35
DX: S09.90XA Unspecified injury of head, initial encounter (principal); Z75.8 Other problems related to medical facilities and other health care; W00.0XXA Fall on same level due to ice and snow, initial encounter
CPT/HCPCS: 70450; 99283; A9270